=== PATIENT | female | born 2000 | race Caucasian/White ===

== ENCOUNTER 2019-10-19 16:29 | Emergency (ER) | payer OTHER ==
--- NOTE | 2019-10-19 16:37 | ER Document Report ---
ED Medical Screen (RME) - General Chief Complaint: OB Problem (<20wks) Stated Complaint: OB PROBLEM Time Seen by Provider: 10/19/19 16:34 Mode of Arrival: Ambulatory Information source: Patient Notes: 19-year-old female patient G1, P0 presenting to the emergency department with vaginal bleeding in the setting of early . Patient reports she is approximately 5 to 7 weeks and began vaginally bleeding yesterday. She denies passage of any clots or tissue. Denies any other symptoms. Patient awake, alert, no acute distress noted. Abdomen soft nontender. I have greeted and performed a rapid initial assessment of this patient. A comprehensive ED assessment and evaluation of the patient, analysis of test results and completion of the medical decision making process will be conducted by additional ED providers. I have specifically instructed the patient or family members with the patient to immediately return to any nursing staff should anything change in the patient's condition or with their chief complaint. - Related Data Allergies/Adverse Reactions: No Known Allergies Allergy (Unverified 10/19/19 16:34) Physical Exam - Vital signs Vitals: Temp Pulse Resp BP Pulse Ox 98.8 F 112 H 18 144/83 H 97 10/19/19 16:30 10/19/19 16:30 10/19/19 16:30 10/19/19 16:30 10/19/19 16:30 Course - Vital Signs Vital signs: Temp Pulse Resp BP Pulse Ox 98.8 F 112 H 18 144/83 H 97 10/19/19 16:30 10/19/19 16:30 10/19/19 16:30 10/19/19 16:30 10/19/19 16:30
[2019-10-19 17:16] LABS: ABSOLUTE LYMPHOCYTES (AUTO) 1.3 10^3/uL (0.5-4.7); ABSOLUTE MONOCYTES (AUTO) 0.4 10^3/uL (0.1-1.4); BASOPHILS % (AUTO) 0.4 % (0-2); EOSINOPHILS % (AUTO) 0.3 % (0-6); HEMATOCRIT 42.7 % (36.0-47.0); HEMOGLOBIN 14.7 g/dL (12.0-15.5); LYMPHOCYTES % (AUTO) 19.9 % (13-45); MEAN CORPUSCULAR HGB CONC 34.5 g/dL (32.0-36.0); MEAN CORPUSCULAR VOLUME 87 fl (80-97); MONOCYTES % (AUTO) 5.4 % (3-13); PLATELET COUNT 266 10^3/uL (150-450); RED BLOOD COUNT 4.91 10^6/uL (3.72-5.28); RED CELL DISTRIBUTION WIDTH 13.1 % (11.5-14.0); TOTAL CELLS COUNTED % (AUTO) 100 %; WHITE BLOOD COUNT 6.7 10^3/uL (4.0-10.5)
[2019-10-19 17:21] LABS: APPEARANCE,URINE SLIGHTLY-CLOUDY; BILIRUBIN,URINE NEGATIVE (NEGATIVE); COLOR,URINE YELLOW; GLUCOSE, URINE NEGATIVE (NEGATIVE); KETONES,URINE 80 mg/dL (NEGATIVE); LEUKOCYTE ESTERASE,URINE TRACE (NEGATIVE); NITRITE,URINE NEGATIVE (NEGATIVE); PROTEIN,URINE 30 mg/dL (NEGATIVE); URINE SPECIFIC GRAVITY 1.033
[2019-10-19 17:37] LABS: ALBUMIN 4.8 g/dL (3.5-5.0); ALKALINE PHOSPHATASE 71 U/L (38-126); ANION GAP 12 (5-19); ASPARTATE AMINO TRANSFERASE 29 U/L (14-36); BILIRUBIN,TOTAL 1.6 mg/dL (0.2-1.3); BLOOD UREA NITROGEN 13 mg/dL (7-20); CALCIUM 9.8 mg/dL (8.4-10.2); CARBON DIOXIDE 24 mmol/L (22-30); CHLORIDE 103 mmol/L (98-107); GLUCOSE 86 mg/dL (75-110); POTASSIUM 3.7 mmol/L (3.6-5.0); TOTAL PROTEIN 8.3 g/dL (6.3-8.2)
--- NOTE | 2019-10-19 17:37 | ER Document Report ---
ED GI/ - General Chief Complaint: Vaginal Bleeding Stated Complaint: OB PROBLEM Time Seen by Provider: 10/19/19 16:34 Mode of Arrival: Ambulatory Notes: CHIEF COMPLAINT: Vaginal bleeding and pelvic pain yesterday HPI: 19-year-old female who is a primigravida who believes she is 5 to 7 weeks by dates presenting for episodes of vaginal spotting and bleeding yesterday with pelvic cramping. No vaginal bleeding or cramping today. No fever. Did not call [facility] for evaluation of symptoms ROS: See HPI - all other systems were reviewed and are otherwise negative Constitutional: no fever or recent illness Eyes: no drainage, no blurred vision ENT: no runny nose, no sore throat Cardiovascular: no chest pain Resp: no SOB, no cough GI: no vomiting, no diarrhea, positive pelvic pain yesterday : no dysuria, no vaginal discharge, positive vaginal bleeding yesterday Integumentary: no rash Allergy: no hives Musculoskeletal: no extremity pain or swelling Neurological: no numbness/tingling, no weakness MEDICATIONS: I agree with the patient medications as charted by the RN. ALLERGIES: I agree with the allergies as charted by the RN. PAST MEDICAL HISTORY/PAST SURGICAL HISTORY: Reviewed and agree as charted by RN. SOCIAL HISTORY: Reviewed and agree as charted by RN. FAMILY HISTORY: No significant familial comorbid conditions directly related to patient complaint EXAM: Reviewed vital signs as charted by RN. CONSTITUTIONAL: Alert and oriented and responds appropriately to questions. Well-appearing; well-nourished, no acute distress HEAD: Normocephalic; atraumatic EYES: PERRL; Conjunctivae clear, sclerae non-icteric ENT: normal nose; no rhinorrhea; moist mucous membranes; pharynx without lesions noted NECK: Supple without meningismus; non-tender; no cervical lymphadenopathy, no masses CARD: RRR; no murmurs, no clicks, no rubs, no gallops; symmetric distal pulses RESP: Normal chest excursion without splinting or tachypnea; breath sounds clear and equal bilaterally; no wheezes, no rhonchi, no rales, ABD/GI: Normal bowel sounds; non-distended; soft, non-tender, no rebound, no guarding; no palpable organomegaly or masses : 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 External genitalia normal. No skin lesions noted. Pelvic Exam: No active bleeding. Moderate amount of a thin white discharge is noted. Cervix appears normal. No CMT. cervix is closed. No lesions or masses. Uterus normal size and non tender. Right/Left adnexa normal size and non tender. BACK: The back appears normal and is non-tender to palpation, there is no CVA tenderness EXT: Normal ROM in all joints; non-tender to palpation; no cyanosis, no effusions, no edema SKIN: Normal color for age and race; warm; dry; good turgor; no acute lesions noted NEURO: Moves all extremities equally; Motor and sensory function intact PSYCH: The patient's mood and manner are appropriate. Grooming and personal hygiene are appropriate. MDM: 19-year-old female with vaginal bleeding and cramping yesterday in the setting of . Screening labs and ultrasound ordered by triage process. TRAVEL OUTSIDE OF THE [place] IN LAST 30 DAYS: No - Related Data Allergies/Adverse Reactions: No Known Allergies Allergy (Unverified 10/19/19 16:34) Past Medical History - General Information source: Patient - Social History Smoking Status: Unknown if Ever Smoked Family History: Reviewed & Not Pertinent Patient has suicidal ideation: No Patient has homicidal ideation: No Physical Exam - Vital signs Vitals: Temp Pulse Resp BP Pulse Ox 98.8 F 112 H 18 144/83 H 97 10/19/19 16:30 10/19/19 16:30 10/19/19 16:30 10/19/19 16:30 10/19/19 16:30 Course - Re-evaluation Re-evalutation: 10/19/19 17:59 Patient's ultrasound does not show an intrauterine gestation her beta hCG is negative patient is not . Awaiting wet prep to evaluate for vaginitis but will plan to discharge patient to follow-up with [facility] 10/19/19 18:37 I had a long discussion with the patient about her results. She has a negative test here but states she had a positive test unplanned . Her ultrasound does not show any acute abnormalities. She has vaginitis, will treat with Flagyl. She will be referred to [facility]. She will be given a copy of her lab work per her request. She will take this to [facility] for follow-up - Vital Signs Vital signs: Temp Pulse Resp BP Pulse Ox 98.8 F 112 H 18 144/83 H 97 10/19/19 16:30 10/19/19 16:30 10/19/19 16:30 10/19/19 16:30 10/19/19 16:30 - Laboratory Result Diagrams: 10/19/19 16:45 10/19/19 16:45 Laboratory results interpreted by me: 10/19/19 10/19/19 16:45 16:45 Total Bilirubin 1.6 H Total Protein 8.3 H Urine Protein 30 H Urine Ketones 80 H Urine Urobilinogen 2.0 H Ur Leukocyte Esterase TRACE H Urine Ascorbic Acid 40 H Discharge - Discharge Clinical Impression: Vaginal bleeding Vaginitis Qualifiers: Chronicity: acute Qualified Code(s): N76.0 - Acute vaginitis Condition: Stable Disposition: HOME, SELF-CARE Additional Instructions: Follow-up with [facility] for further evaluation and treatment. Your beta hCG test here today was negative, you are not . Your ultrasound was normal. You do have vaginitis take the Flagyl to treat this bacterial vaginal infection. As you had a possible test previously that was positive obtain that test from [facility] to take those results and your current results to the [facility] for further follow-up and evaluation Prescriptions: Metronidazole [Flagyl 500 mg Tablet] 500 mg PO BID #14 tablet Referrals: CONNIE EASTON MD [ACTIVE STAFF] - Follow up as needed
--- NOTE | 2019-10-19 17:45 | RADIOLOGY REPORT (SQ) ---
EXAM DESCRIPTION: U/S OB TRANSVAGINAL W/O DOP COMPLETED DATE/TIME: 10/19/2019 5:11 pm REASON FOR STUDY: VAG BLEED, + PREG COMPARISON: None. TECHNIQUE: Transvaginal static and realtime grayscale images acquired of the pelvis. Additional rachana cted spectral and color Doppler images recorded. All images stored on PACs. bHCG: Not available. CLINICAL DATES: 09/03/2019. 6 weeks 4 days. LIMITATIONS: None. FINDINGS: There is no identifiable intrauterine gestation. UTERUS: No masses. No anomalies. CERVICAL LENGTH: 2.7 cm. Closed. RIGHT ADNEXA: Normal ovary with normal vascular flow. 3.3 x 2.3 x 2.8 cm. No adnexal free fluid. No adnexal masses. LEFT ADNEXA: Normal ovary with normal vascular flow. 3 x 1.3 x 2.7 cm. No adnexal free fluid. No adnexal masses. FREE FLUID: None. OTHER: Endometrium measures 2 mm. IMPRESSION: There is no intrauterine gestation at this time. Follow-up as clinically indicated. TECHNICAL DOCUMENTATION: JOB ID: [id number] [employer]- All Rights Reserved rev-12/23 Reading location - IP/workstation name: [email or web address]
[2019-10-19 18:10] LABS: RBCS (WET MOUNT) RARE RBCS SEEN; T.VAGINALIS (WET MOUNT) NO TRICHOMONAS SEEN; WBCS (WET MOUNT) 2+ WBCS SEEN; YEAST (WET MOUNT) NO YEAST SEEN
[2019-10-19] MEDS ORDERED: METRONIDAZOLE 500 MG TABLET PO ONE (18:37)
[2019-10-19 19:23] VITALS: BP 127/74
[2019-10-19 19:37] LABS: CHLAM PCR NOT DETECTED (NOT DETECT)
== END 2019-10-19 19:10 | disposition home or self-care (01) ==
LOC: ER 16:29
DX: N76.0 Acute vaginitis (principal); N93.9 Abnormal uterine and vaginal bleeding, unspecified; R10.2 Pelvic and perineal pain
CPT/HCPCS: 36415; 76817; 80053; 81001; 84702; 85025; 86900; 86901; 87210; 87491; 87591; 99284